=== PATIENT | male | born 1995 | race Caucasian/White ===

== ENCOUNTER 2016-12-27 13:16 | Emergency (ER) | payer SELFPAY ==
[~2016-12-27] VITALS: Ht 167.6 cm; Wt 72.6 kg
[2016-12-27 13:25] VITALS: BP 128/72
--- NOTE | 2016-12-27 14:04 | PHYS DOC ---
Past Medical History Past Medical History: No Pertinent History Past Surgical History: No Surgical History Alcohol Use: None Drug Use: Amphetamine, Benzodiazepine, Cocaine, Marijuana Adult General Chief Complaint Chief Complaint: GROIN PAIN HPI HPI 21-year-old male presenting to the emergency department today with scrotal pain that started around 1:00 this afternoon. He was having a bowel movement when he felt severe pain in his scrotum. He is unable to identify whether it was in his testicles but describes more the actual scrotum. He denies having history of hernias or hernia repairs. He denies any signs or symptoms of hernia-like swelling in the scrotal region. He denies swelling of his testicles or erythema of the testicles. The pain was a sharp shooting pain that was moderate and currently is 2 out of 10. It is nonradiating intermittent and without alleviating factors. It seems to have been alleviated spontaneously. Review of systems is negative for chest pain shortness of breath abdominal pain fevers or chills. All other review of systems is negative unless otherwise noted in history of present illness. ED course: 21-year-old male presenting to the emergency department today with scrotal/testicular pain. Upon arrival the patient was saturating well afebrile with a normal heart rate. He was comfortable and well-appearing. On examination the testicles the patient has normal-appearing testicles that are normal in size and in lie. Cremasteric reflex is present. Nontender epididymis. No blue dot sign present. There is no evidence of hernia with Valsalva. Otherwise the remainder the patient's examination is unremarkable. Ultrasound of the testicles and scrotum were obtained and unremarkable. The patient was then discharged home in stable condition to follow up with their primary care physician over the next 2-3 days. They were to return if their symptoms worsened or if they were concerned for any reason. [id number] discharge instructions and return precautions were given. Patient's questions were answered to their satisfaction. Patient is comfortable plan. Review of Systems Review of Systems SEE ABOVE. Current Medications Current Medications Current Medications Medications (Trade) Dose Ordered Sig/[facility] Start Time Stop Time Status Last Admin Dose Admin Ibuprofen (Motrin) 400 mg 1X ONCE 12/27/16 13:45 12/27/16 13:46 UNV Physical Exam Physical Exam SEE ABOVE Constitutional: Well developed, well nourished, no acute distress, non-toxic appearance. [] HENT: Normocephalic, atraumatic, bilateral external ears normal, oropharynx moist, no oral exudates, nose normal. Eyes: PERRLA, EOMI, conjunctiva normal, no discharge. Neck: Normal range of motion, no tenderness, supple, no stridor. [] Cardiovascular:Heart rate regular rhythm, no murmur Lungs & Thorax: Bilateral breath sounds clear to auscultation [] Abdomen: Bowel sounds normal, soft, no tenderness, no masses, no pulsatile masses. [] : SEE ABOVE Skin: Warm, dry, no erythema, no rash. Back: No tenderness, no CVA tenderness. [] Extremities: No tenderness, no cyanosis, no clubbing, ROM intact, no edema. Neurologic: Alert and oriented X 3, normal motor function, normal sensory function, no focal deficits noted. [] Psychologic: Affect normal, judgement normal, mood normal. [] Current Patient Data Vital Signs Vital Signs Date Time Temp Pulse Resp B/P (MAP) Pulse Ox O2 Delivery O2 Flow Rate FiO2 12/27/16 13:25 98.5 84 18 99 Room Air 98.5 EKG EKG [] Radiology/Procedures Radiology/Procedures [] Course & Med Decision Making Course & Med Decision Making Pertinent Labs and Imaging studies reviewed. (See chart for details) [] Dragon Disclaimer Dragon Disclaimer This electronic medical record was generated, in whole or in part, using a voice recognition dictation system. Departure Departure Impression: Primary Impression: Groin pain Disposition: 01 HOME, SELF-CARE Condition: STABLE Additional Instructions: Thank you for allowing us to participate in your care today. Return to the emergency department if your testicular/groin pain comes back. Followup with your primary care physician in 3 days if your symptoms do not improve. Call your Primary Doctor tomorrow and inform them of your visit today. If you do not have a primary care provider you can ask for a list of our primary care providers. Return to the emergency department you have any new or concerning findings. This should be evaluated by the primary care physician and any necessary consulting services for continued management within a few days after discharge. Return to emergency room if you have any new or concerning symptoms including but not limited to fever, chills, nausea, vomiting, intractable pain, any new rashes, chest pain, shortness of air, uncontrolled bleeding, difficulty breathing, and/or vision loss. ALLI HERNANDEZ MD Dec 27, 2016 14:04
--- NOTE | 2016-12-27 14:23 | RAD ---
EXAM: Grayscale and color Doppler to suggest sonogram. HISTORY: Testicular pain. TECHNIQUE: Grayscale and color Doppler sonographic imaging of the testes with spectral waveform analysis was performed. COMPARISON: None. FINDINGS: The right testis measures 3.4 x 2.2 x 3.6 cm. The left testis measures 3.3 x 1.7 x 2.6 cm. There is normal symmetric blood flow within both testes. No focal testicular parenchymal lesion is seen. There is no hydrocele or varicocele. The epididymides are unremarkable. IMPRESSION: Unremarkable testicular sonogram.
[2016-12-27] MEDS ORDERED: IBUP-1027 PO (14:31)
[2016-12-27] MEDS ORDERED: IBUPROFEN 400 MG TABLET. PO ONE (14:45)
== END 2016-12-27 15:08 | disposition home or self-care (01) ==
LOC: ER 13:16
DX: R10.30 Lower abdominal pain, unspecified (principal); N50.82 Scrotal pain; F15.10 Other stimulant abuse, uncomplicated; F12.10 Cannabis abuse, uncomplicated; F14.10 Cocaine abuse, uncomplicated; F19.10 Other psychoactive substance abuse, uncomplicated
CPT/HCPCS: 76870; 99284-25